=== PATIENT | female | born 1990 | race Caucasian/White ===

== ENCOUNTER 2022-08-22 10:39 | Emergency (ER) | payer OTHER, BC, SELFPAY ==
[2022-08-22 10:52] VITALS: BP 133/81; PULSE 105; RESP 20; TEMP 36.6; O2SAT 100
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
[2022-08-22 13:53] VITALS: BP 120/73; PULSE 88; RESP 18; O2SAT 100
== END 2022-08-22 14:05 | disposition home or self-care (01) ==
PROVIDERS: Emergency Provider Emergency Medicine; PCP Family Medicine
DX: S06.0X0A Concussion without loss of consciousness, initial encounter (principal); S13.4XXA Sprain of ligaments of cervical spine, initial encounter; V49.50XA Passenger injured in collision with unspecified motor vehicles in traffic accident, initial encounter
CPT/HCPCS: 99282

== ENCOUNTER 2024-08-19 14:55 | Observation (INO) | payer BC, SELFPAY ==
--- NOTE | ~2024-08-19 | MR_ITS ---
EXAMINATION: MR brain/brain stem wo con DATE: 08/20/2024 08:59 INDICATION: Vertigo TECHNIQUE: Magnetic resonance imaging (MRI) of the brain and brainstem was performed without intraven ous contrast. Sequences included sagittal and axial T1-weighted SE, axial diffusion-weighted FS SE, a xial 3D SWAN, axial T2-weighted FLAIR, and axial T2-weighted FSE. Apparent diffusion coefficient (ADC ) maps were created. COMPARISON: Head CT dated 08/19/2024 FINDINGS: There are no areas of restricted diffusion to suggest acute infarction. No intracranial hemorrhage or abnormal intracranial mass lesion. There are no intraparenchymal signal abnormalities seen on the ot her pulse sequences. The ventricles are symmetric and normal in size. There are no abnormal extra-axi al fluid collections. Flow voids are seen in the cerebral arteries on the T2-weighted sequences consi stent with their expected patency. Visualized orbits and soft tissues are unremarkable. IMPRESSION: 1. Normal brain MR. Reviewed, dictated and finalized at location A. IMPRESSION: 1. Normal brain MR.
--- NOTE | ~2024-08-19 | CT_ITS ---
CT brain wo con Ordering provider: Armando Adame MD History: 34 years Female with . headache/dizziness . Comparison: None. Technique: CT of the head without contrast. Radiation reduction technique utilized.The dose-length product was 605.33 mGy-cm. FINDINGS: BRAIN PARENCHYMA AND CSF SPACES: No midline shift, mass effect or hemorrhage. The brain parenchyma a nd CSF spaces are otherwise normal. VISUALIZED PARANASAL SINUSES: Well aerated. MASTOIDS: Well aerated. BONES: The bones appear intact. SOFT TISSUES: Visualized nasopharynx is normal. Superficial soft tissues are normal. IMPRESSION: No acute intracranial findings. Reviewed, dictated and finalized at location A.
[2024-08-19 14:56] VITALS: BP 132/86; PULSE 88; RESP 20; TEMP 36.4; O2SAT 100
--- NOTE | 2024-08-19 15:03 | ED.DIZZY ---
HPI - Dizziness General Chief Complaint: Dizziness <Mac Quintanilla APRN - Last Filed: 08/19/24 15:04> Stated Complaint: dizzy <Mac Quintanilla APRN - Last Filed: 08/19/24 15:04> Time Seen by Provider: 08/19/24 15:08 <Mac Quintanilla APRN - Last Filed: 08/19/24 15:04> 34-year-old female presents with sudden onset of dizziness when waking up this morning. Patient states the symptoms increased when she moves her head. Patient denies any medical history. Patient actively vomiting in triage GENERAL: Well-appearing, well-nourished, and in no acute distress. HEAD: Normocephalic, atraumatic. EYES: PERRLA and EOMI. ENT: Nares clear, no rhinorrhea or epistaxis. Mucous membranes moist. NECK: Supple. CHEST: Clear to auscultation. No respiratory distress. HEART: Regular rate and rhythm. No murmur heard. Normal peripheral pulses. ABDOMEN: Soft, nontender, nondistended, normal active bowel sounds. EXTREMITIES: Normal range of motion. No edema. SKIN: Warm, dry, no rash. NEURO: No focal deficits. Alert and oriented x3. Actively dizzy and vomiting PSYCH: Normal mood and affect. <Mac Quintanilla APRN - Last Filed: 08/19/24 15:04> History of Present Illness HPI Narrative: Agree with HPI. Dizziness is spinning in nature. Worse with head turning and positional change. <Armando Adame MD - Last Filed: 08/19/24 18:41> Related Data Allergies/Adverse Reactions: Allergies Allergy/AdvReac Type Severity Reaction Status Date / Time No Known Allergies Allergy Verified 08/19/24 15:22 <Mac Quintanilla APRN - Last Filed: 08/19/24 15:04> Review of Systems Review of Systems: All systems reviewed & are unremarkable except as noted in HPI and below <Armando Adame MD - Last Filed: 08/19/24 18:41> Constitutional: Constitutional: Reports fatigue and Reports weakness <Armando Adame MD - Last Filed: 08/19/24 18:41> ENT: Reports vertigo, Denies nasal congestion and Denies sore throat <Armando Adame MD - Last Filed: 08/19/24 18:41> Cardiovascular: Cardiovascular: Reports no additional cardiovascular complaints <Armando Adame MD - Last Filed: 08/19/24 18:41> Respiratory: Respiratory: Reports no additional respiratory complaints <Armando Adame MD - Last Filed: 08/19/24 18:41> Gastrointestinal: Gastrointestinal: Denies abdominal pain, Reports nausea and Reports vomiting <Armando Adame MD - Last Filed: 08/19/24 18:41> Neurologic: Denies confusion, Reports vertigo, Reports dizziness, Reports headache(s), Denies focal weakness and Denies numbness <Armando Adame MD - Last Filed: 08/19/24 18:41> PMF Past Medical History Medical History: Medical History Alopecia Benign nevus of skin Encounter for IUD removal Flu vaccine need Plantar wart Well adult exam <Mac Quintanilla APRN - Last Filed: 08/19/24 15:04> Surgical History Surgical History: Surgical History H/O gynecological procedure 10/11/2020 Chari IUD insertion 06/19/12 VULVAR BX -LICHEN SCLEROSIS 06/18/12 COLP/BX - CHRONIC CXITIS History of gynecological procedure (10/09/23) chari iud removal <Mac Quintanilla APRN - Last Filed: 08/19/24 15:04> Family History Family History: Family History (Updated 03/17/24 @ 10:53 by JOSE Nicholson) Mother No problems noted. Father No problems noted. Grandparent Breast cancer Other Breast cancer Maternal Aunt Ovarian cancer paternal aunt Other Cerebrovascular accident Diabetes mellitus Hypertension Patient's father is in good health Patient's mother is in good health <Mac Quintanilla APRN - Last Filed: 08/19/24 15:04> Social History Social History: Social History Smoking status: Never smoker Second hand tobacco smoke exposur
--- NOTE | 2024-08-19 15:15 | PC.NURSE ---
pt unable to urinate at this time
[2024-08-19 15:22] LABS: Basophils Absolute Auto 0.1 K/mm3 (0.0-0.1); Basophils Percent Auto 0.6 % (0.2-1.2); Eosinophils Percent Auto 0.2 % (0-4.4); Hematocrit 44.9 % (37.0-47.0); Hemoglobin 15.4 g/dL (12.0-15.0); Immature Granulocyte Absolute 0.06 K/mm3 (0.00-0.031); Immature Granulocyte Percent A 0.3 % (0-0.5); Lymphocytes Absolute Auto 3.69 K/mm3 (0.9-3.2); Lymphocytes Percent Auto 20.7 % (18.3-44.2); Mean Corpuscular HGB Conc 34.3 g/dl (32-36); Mean Corpuscular Hemoglobin 33.2 pg (26-34); Mean Corpuscular Volume 96.8 fl (80-100); Mean Platelet Volume 12.2 fl (7.4-10.4); Monocytes Absolute Auto 1.2 K/mm3 (0.1-0.6); Monocytes Percent Auto 6.9 % (2.6-8.5); Neutrophils Absolute Auto 12.7 K/mm3 (1.3-6.7); Neutrophils Percent Auto 71.3 % (45.5-73.1); Platelet Count Result 342 k/mm3 (150-375); Red Blood Count 4.64 M/mm3 (4.2-5.4); Red Cell Distribution Width 13.8 % (11.5-14.5); White Blood Count 17.8 K/mm3 (4.5-10.0)
[2024-08-19] MEDS: ONDANSETRON INJ 4 MG/2 ML VIAL IV PUSH ×2 (15:23→21:09)
[2024-08-19] MEDS: MECLIZINE HCL 25 MG TABLET PO (15:23)
[2024-08-19] MEDS: SODIUM CHLORIDE 0.9% IV 1,000 ML 999 ML IV CONT ×2 (15:23→17:18)
[2024-08-19 15:33] LABS: Alanine Aminotransferase 19 U/L (6-35); Alkaline Phosphatase 53 U/L (38-126); Anion Gap 13 mmol/L (4-12); Aspartate Amino Transferase 30 U/L (14-36); Bilirubin,Total 0.9 mg/dL (0.2-1.3); Blood Urea Nitrogen 9 mg/dL (7-17); Calcium 9.8 mg/dL (8.4-10.2); Carbon Dioxide 18 mmol/L (22-30); Chloride 104 mmol/L (98-107); Estimated CRCL calculation 97 ml/min; Estimated Glomerular Filt Rate > 60; Glucose 136 mg/dL (65-110); Magnesium 1.9 mg/dL (1.6-2.3); Potassium 3.6 mmol/L (3.4-5.0); Sodium 135 mmol/L (137-145)
[2024-08-19 17:09] LABS: BEDSIDEPREGUCG Negative (Negative)
[2024-08-19 17:11] VITALS: BP 118/68; PULSE 93; RESP 19; O2SAT 100
[2024-08-19 17:16] LABS: Add Urine Microscopic? YES; Appearance Urine Clear (Clear); Bacteria Urine 1+ /hpf; Bilirubin Urine Negative (Negative); Blood Urine Negative (Negative); Color Urine Yellow (Yellow); Glucose Urine UA Negative (Negative); Ketones Urine 3+ mg/dL (Negative); Leukocyte Esterase Ur Trace LEU/UL (Negative); Nitrate Urine Negative (Negative); Non Pathogenic Casts 0-2; Protein Urine Negative (Negative); RBC Urine 0-2 /hpf (0-2); Specific Grav Ur 1.017 (1.001-1.035); Squamous Epithelial Cell Urine Occasional /hpf (Few)
[2024-08-19 17:17] LABS: Pregnancy On Board Control Positive; Urine Pregnancy Test Negative
[2024-08-19] MEDS: KETOROLAC 30 MG/ML VIAL (*BKC) IV PUSH (17:18)
[2024-08-19] MEDS: diazePAM INJ (*CRX) 10 MG/2 ML SYRINGE 5 MG IV PUSH ×2 (17:19→21:09)
--- NOTE | 2024-08-19 17:23 | PC.NURSE ---
Pt to CT scan via stretcher at this time.
[2024-08-19] MEDS: SODIUM CHLORIDE 0.9% IV 1,000 ML 125 ML IV CONT (19:17)
[2024-08-19 21:00] VITALS: BP 112/64; PULSE 90; RESP 18; O2SAT 100
--- NOTE | 2024-08-19 21:51 | ADMGEN ---
This patient, Raquel Adams, was admitted to 3 [facility] Surg Room 320-01. Patient/family oriented to hospital policies and general routines including ID bracelet, bed and alarms, visiting hours, pain management, procedures, bathroom and other care routines, personal items, smoking policy, room service/diet, and visiting hours. Information on how to activate the Rapid Response Team has been discussed. Patient/Family are encouraged to report perceived risks to care and to ask questions if they do not understand what they are told or what they should do.
[2024-08-19 21:53] VITALS: PULSE 81
[2024-08-19] MEDS: MECLIZINE HCL 12.5 MG TABLET PO (22:03)
[2024-08-20] VITALS (8 sets, daily range): BP systolic 114–135; BP diastolic 63–83; PULSE 76–94; RESP 14–20; TEMP 36.3–37.1; O2SAT 99–100
--- NOTE | 2024-08-20 02:59 | PM.IMHP ---
H&P: HPI History of Present Illness Date/Time: 08/20/24 02:59 Chief Complaint: Severe dizziness Narrative: 34-year-old female past medical history of of anxiety and depression who presented with acute onset of severe vertigo. The patient reports her symptoms started on the when she was at work. She was sitting at her desk when she began noticing objects moving and spinning. She became acutely nauseous. She was nervous to drive home traffic so she left work early so that she could get home and rest. The symptoms seemed to get a little bit better. But then she acutely woke up at 01:00 on the with severe vertigo resulting in nausea, vomiting and diaphoresis. She reports that her hands became tingly likely usually do when she has episodes of vomiting. She reported that she had to hold onto objects in order to be able to ambulate. She does report that she has some issues with sinus congestion on a frequent basis. She thinks she may have a little bit more sinus pressure in her frontal sinuses currently. She does have significant postnasal drip with changes in the environment. She denies any ear fullness or pressure. She denies any loss of hearing or tinnitus. On exam patient did have some fluid behind her right ear. She denies any sore throat, cough, congestion or exposure to viruses. He has not had any recent change in medications or head trauma. She reports that since her symptoms started at 01:00 on the they have not completely resolved. She reports that the symptoms may be a little bit worse if she turns more to the left. She has never had symptoms like this before. She reported until a vertigo occurred she was in her usual state of health. Her urine in the ER did demonstrate pyuria with bacteriuria but she denies any urinary symptoms. She reports that she has had 3 slightly looser stools in the last 24 hours, but no overt diarrhea. ER provider attempted Jennifer maneuvers in the ER. The patient reports that the maneuvers simply made her symptoms worse. Review of Systems Review of Systems: 12 systems were reviewed with pertinent positives and negatives per HPI. Except as documented in the HPI, all other systems were reviewed and are negative. [facility] Past Medical History Medical History (Updated 08/20/24 @ 03:05 by Cara Turner DO) Alopecia Anxiety and depression Benign nevus of skin Plantar wart Surgical History Surgical History H/O gynecological procedure 10/11/2020 Chari IUD insertion 06/19/12 VULVAR BX -LICHEN SCLEROSIS 06/18/12 COLP/BX - CHRONIC CXITIS History of gynecological procedure (10/09/23) chari iud removal Family History Family History Mother No problems noted. Father No problems noted. Grandparent Breast cancer Other Breast cancer Maternal Aunt Ovarian cancer paternal aunt Other Cerebrovascular accident Diabetes mellitus Hypertension Patient's father is in good health Patient's mother is in good health Social History Social History (Updated 08/20/24 @ 06:31 by Cara Turner DO) Social History: She lives in [place] with her of 11 years and their 8-year-old son. She is a lifelong nonsmoker. She drinks 1 alcoholic beverage a night on average. She denies any illicit substance use. She is a banking supervisor. Code status: Full code Surrogate decision maker: Robby () Smoking status: Never smoker Second hand tobacco smoke exposure: No Alcohol intake: current Drinks per week: 7 Substance use: never Substance use type: does not use Do You Feel Safe in your Home?: Yes Lack of Transportation: No Lack of Food: Never True Current Housing: I Have Housing Concerned About Future Housing: No Difficulty Paying Gas/Electric Bills: No Difficulty Paying for Meds: No Currently Un
[2024-08-20] MEDS: SODIUM CHLORIDE 0.9% IV 1,000 ML 125 ML IV CONT ×2 (03:45→09:19)
[2024-08-20 06:47] LABS: Hematocrit 39.7 % (37.0-47.0); Hemoglobin 13.4 g/dL (12.0-15.0); Mean Corpuscular HGB Conc 33.8 g/dl (32-36); Mean Corpuscular Hemoglobin 33.5 pg (26-34); Mean Corpuscular Volume 99.3 fl (80-100); Mean Platelet Volume 11.9 fl (7.4-10.4); Platelet Count Result 308 k/mm3 (150-375); Red Cell Distribution Width 14.3 % (11.5-14.5); White Blood Count 14.9 K/mm3 (4.5-10.0)
[2024-08-20 06:55] LABS: Anion Gap 7 mmol/L (4-12); Blood Urea Nitrogen 7 mg/dL (7-17); Calcium 8.6 mg/dL (8.4-10.2); Carbon Dioxide 19 mmol/L (22-30); Chloride 113 mmol/L (98-107); Estimated CRCL calculation 97 ml/min; Estimated Glomerular Filt Rate > 60; Glucose 82 mg/dL (65-110); Potassium 3.7 mmol/L (3.4-5.0); Sodium 139 mmol/L (137-145)
--- NOTE | 2024-08-20 08:36 | PC.NURSE ---
To MRI per stretcher.
--- NOTE | 2024-08-20 09:03 | PC.NURSE ---
Return to room per stretcher from MRI.
[2024-08-20] MEDS: SERTRALINE HCL 50 MG TABLET PO (09:18)
[2024-08-20] MEDS: predniSONE 20 MG TABLET 60 MG PO (09:18)
[2024-08-20] MEDS: MECLIZINE HCL 25 MG TABLET PO ×4 (09:18→20:32)
[2024-08-20] MEDS: LORATADINE/PSEUDOEPHEDRINE (*CRX) 10/240 MG TABLET ER 24 HR 1 TAB PO (09:18)
--- NOTE | 2024-08-20 10:09 | PM.IMPN ---
Progress Note: A&P Assessment and Plan (1) Vertigo: Code(s): R42 - Dizziness and giddiness Status: Acute Assessment and Plan: 08/20/24: Reporting dizziness, nystagmus present. Unable to tolerate Jennifer maneuver due to nausea and vomiting fluid noted behind left ear, likely chronic sinusitis CT of the brain negative for any acute findings MRI of the brain revealed a normal appearing brain, no acute findings. Continue Claritin, Flonase and prednisone Continue nausea control Continue Meclizine 25mg QID DC IVF DC PT and OT DC continuous telemetry (2) Leukocytosis: Qualifiers: Leukocytosis type: unspecified Qualified Code(s): D72.829 - Elevated white blood cell count, unspecified Code(s): D72.829 - Elevated white blood cell count, unspecified Status: Acute Assessment and Plan: 08/20/24: WBC down to 14.9 Continue to trend (3) Low serum bicarbonate: Code(s): R79.89 - Other specified abnormal findings of blood chemistry Status: Acute Assessment and Plan: 08/20/24: Bicarb level 19 Continue to trend (4) Dehydration: Code(s): E86.0 - Dehydration Status: Acute Assessment and Plan: 08/20/24: Patient was given 2L NS Continue IVF for now (5) Bacteriuria with pyuria: Code(s): R82.71 - Bacteriuria; R82.81 - Pyuria Status: Acute Assessment and Plan: 08/20/24: UA shown 3+ ketones, trace leukocytes, Urine WBC 6-10, 1+ bacteria Urine culture pending patient asymptomatic, will hold off on antibiotics for now Time Spent With Patient Time with patient: 25 - 35 minutes Subjective Date/time seen: 08/20/24 10:09 Interval history: Interval history: This is a 34 year old female who presented to the hospital today with severe dizziness. She was found to have chronic sinusitis and fluid behind the right ear. She was placed on Claritin, Flonase, meclizine, and IVF. She did not tolerate the Jennifer maneuver. Head CT negative. MRI of brain normal. Subjective: Patient states that she still feels lightheaded and dizzy today however the nausea and vomiting has stopped. She denies any fever, chills, nausea, vomiting, diarrhea, abdominal pain, chest pain, or shortness of breath. She reported that she use to live in [place] and did not have issues with sinuses until she moved to this area. Since then she takes Zyrtec daily. She still has nystagmus on examination. She has been able to eat and drink fluids without any issues. Overall feeling much better than when she first came in. Labs reviewed and were unremarkable. VSS, she is afebrile, currently on room air. Labs, cultures, and imaging reviewed. Review of Systems Review of Systems: All systems reviewed & are unremarkable except as noted in HPI and below Constitutional: Constitutional: Reports as per HPI and Reports no additional constitutional complaints Eyes: Eyes: Reports as per HPI and Reports no additional eye complaints ENT: Reports system reviewed and no additional complaints, except as documented and Reports as per HPI Cardiovascular: Cardiovascular: Reports as per HPI and Reports no additional cardiovascular complaints Respiratory: Respiratory: Reports as per HPI and Reports no additional respiratory complaints Gastrointestinal: Gastrointestinal: Reports as per HPI and Reports no additional gastrointestinal complaints Genitourinary: Genitourinary: Reports no additional female genitourinary complaints and Reports as per HPI Musculoskeletal: Musculoskeletal: Reports no additional musculoskeletal complaints and Reports as per HPI Integumentary/Breasts: Skin/Breast: Reports system reviewed and no additional complaints, except as docu and Reports as per HPI Neurologic: Reports system reviewed and no additional complaints, except as documented and Reports as per HPI Psychiatric: Psychiatric: Reports no additional psychiatric complaints and Reports as per HPI Exam
[2024-08-20] MEDS: FLUTICASONE PROPIONATE 0.05% NA SPR 16 GM BTL (*BKC) 2 SPRAY NASAL (13:06)
[2024-08-20] MEDS: ACETAMINOPHEN 500 MG TABLET 1000 MG PO (18:28)
[2024-08-21 05:23] VITALS: BP 111/69; PULSE 73; RESP 16; TEMP 36.4; O2SAT 99
--- NOTE | 2024-08-21 08:16 | PM.DS ---
DS: Admitting Diagnosis Discharge Date 08/21/24 Admitting Diagnosis Vertigo Leukocytosis Low serum bicarbonate Dehydration Bacteriuria with pyuria DS: Discharge Diagnosis Discharge Diagnosis (1) Vertigo: Code(s): R42 - Dizziness and giddiness Status: Acute (2) Leukocytosis: Qualifiers: Leukocytosis type: unspecified Qualified Code(s): D72.829 - Elevated white blood cell count, unspecified Code(s): D72.829 - Elevated white blood cell count, unspecified Status: Acute (3) Low serum bicarbonate: Code(s): R79.89 - Other specified abnormal findings of blood chemistry Status: Acute (4) Dehydration: Code(s): E86.0 - Dehydration Status: Acute (5) Bacteriuria with pyuria: Code(s): R82.71 - Bacteriuria; R82.81 - Pyuria Status: Acute DS: Summary Hospital Course Reason for hospitalization: Vertigo Leukocytosis Low serum bicarbonate Dehydration Bacteriuria with pyuria Hospital Course: This is a 34 year old female who presented to the hospital today with severe dizziness. She was found to have chronic sinusitis and fluid behind the right ear. She was placed on Claritin, Flonase, meclizine, and IVF. She did not tolerate the Jennifer maneuver. Head CT negative. MRI of brain normal.Urine culture was negative for UTI. Leukocytosis improving however is on prednisone. Patient feeling much better today. Dizziness and vomiting have resolved. VSS, she is afebrile, currently on room air. She is stable for discharge at this time. She will follow up with primary care doctor in 1 week. Final diagnosis: Vertigo, Chronic sinusitis Status at Discharge Cognitive/behavioral status at discharge: Alert and oriented x3 Functional status at discharge: independent ambulation Overall status at discharge: patient is progressing back to baseline Time Spent with Patient Time attestation: Total time spent providing and/or coordinating discharge services: Time spent: Greater than 30 minutes Exam Narrative: General: In no acute distress Cardiac: Normal S1 and S2 Respiratory: Lungs clear to auscultation Gastrointestinal: soft, non-distended, non-tender, normoactive bowel sounds. : voiding without difficulty. Neuro: Alert and oriented x4 DS: Data Data Completed and Pending Completed studies during hospitalization: Head CT Brain MRI Pending studies at discharge: None Procedures/Treatments: None Discharge Plan Discharge Attending physician on discharge: No [place] Consulting providers: Cait Overton Discharging Clinician: Cait Overton Anticipated Discharge Date/Time: 08/21/24 08:15 Patient Disposition: Home, Self-Care Activity: as tolerated Diet: as tolerated Discharge Instructions: Continue taking Claritin, Flonase, and meclizine. Rotate Claritin and Zyrtec every year as your body can get use to the medication and can stop working. Since you have been on Claritin here....continue this medication. You can then go back to Zyrtec next year. Follow up with primary care doctor in 1 week. Patient Instructions: Antibiotic Form, Sinusitis (ED), Benign Paroxysmal Positional Vertigo (DC) Patient Language: Estonian Stand Alone Forms: General Discharge Information Follow-up/Referrals: Roxie Mancia MD [Primary Care Provider] - 1 Week Discharge Medications: New fluticasone propionate 50 mcg/actuation [employer],Suspension 2 spray intranasal QAM Qty: 1 1RF Claritin-D 24 Hour 10-240 mg Tablet Extended Release 24 Hr 1 tablet PO QAM Qty: 30 0RF meclizine 25 mg Tablet 25 mg PO QID Qty: 30 0RF prednisone 10 mg Tablet 10 mg PO DIRECTED Qty: 10 0RF Rx Instructions: see taper instructions Take 40 mg (4 tabs) tomorrow Then 30 mg (3 tabs) day 2 Then 20 mg (2 tabs) day 3 Then 10 mg (1 tab) day 4 Then stop Continued sertraline [Zoloft] 50 mg tablet 50 mg PO DAILY Date of admiss
[2024-08-21] MEDS: LORATADINE/PSEUDOEPHEDRINE (*CRX) 10/240 MG TABLET ER 24 HR 1 TAB PO (08:27)
[2024-08-21] MEDS: SERTRALINE HCL 50 MG TABLET PO (08:27)
[2024-08-21] MEDS: MECLIZINE HCL 25 MG TABLET PO (08:27)
[2024-08-21] MEDS: FLUTICASONE PROPIONATE 0.05% NA SPR 16 GM BTL (*BKC) 2 SPRAY NASAL (08:28)
[2024-08-21] MEDS: predniSONE 20 MG TABLET 40 MG PO (08:28)
[2024-08-21] MEDS: INFLUENZA TRIVALENT VACCINE 45 MCG/0.5 ML SYRINGE IM (10:25)
== END 2024-08-21 10:30 | disposition home or self-care (01) ==
LOC: ANHED 18:21 → ANH3MEDSUR 21:04
PROVIDERS: Internal Medicine; Nurse Practitioner Family; Admitting Provider Family Medicine; Emergency Provider Emergency Medicine; PCP Family Medicine; Visit Provider Internal Medicine
DX: R42 Dizziness and giddiness (principal); J32.9 Chronic sinusitis, unspecified; D72.829 Elevated white blood cell count, unspecified; R79.89 Other specified abnormal findings of blood chemistry; E86.0 Dehydration; R82.71 Bacteriuria; R82.81 Pyuria; Z23 Encounter for immunization; F32.9 Major depressive disorder, single episode, unspecified; F41.9 Anxiety disorder, unspecified; Z79.899 Other long term (current) drug therapy
CPT/HCPCS: 36415; 70450; 70551; 80048; 80053; 81001; 81025; 83735; 84443; 85025; 85027; 87086; 90471; 90656; 96361; 96374; 96375; 96376; 99285; A9270; G0008; G0378; J1885; J2405; J3360; J7030; J7512